=== PATIENT | male | born 1955 | race Caucasian/White ===

== ENCOUNTER 2017-04-25 09:35 | Observation (INO) | payer OTHER ==
[~2017-04-25] VITALS: Ht 177.8 cm; Wt 80.2 kg
--- NOTE | ~2017-04-25 | CT2 ---
[facility] A Service of [facility] RADIOLOGY TEXT RESULTS PATIENT: HANY GREENE LOCATION: A 301- : 56 UNIT #: [id number] AGE: [address]: TATIANNA RENEEUJ V SEX: M ORDER DR: [id number] [facility] [address] [facility] [place], [place] [address] [id number] I MR#: [id number] Acc #: [id number] NAME: HANY GREENE : 1955 SEX: M STUDY DATE/TIME: 04/25/2017 11:52 UNIT: C3A U ROOM: 301 STUDY DESCRIPTION: CT Abd and Pelv W Cont Attending Physician: Kelsi Tarango M.D. Ordering Physician: Bhavya Shearer M.D. Primary Care Physician: Primary Care Physician No MEDICAL IMAGING REPORT This report is preliminary unless electronic signature is present EXAM CT of the abdomen and pelvis with contrast INDICATIONS Left lower quadrant abdominal pain, nausea and vomiting since this morning. TECHNIQUE Axial CT images were obtained from the dome of the diaphragm through the symphysis pubis following administration of intravenous contrast material. This CT exam was performed with one or more of the following radiation dose reduction techniques: Automatic exposure control, adjustment of mA and/or kV according to patient size, and iterative reconstruction. FINDINGS Patient is noted to have bibasilar atelectasis. There is a small hiatal hernia. There is also a duodenal diverticulum. Cholelithiasis is present. There is an indeterminate low-attenuation lesion seen within the right hepatic lobe with an additional tiny low-attenuation lesion seen within the medial hepatic segment adjacent to the falciform ligament. The larger lesion measures about 1.6 cm. Pancreas is mildly atrophic. Adrenal glands are within normal limits. Patient has a right parapelvic cyst. There is mild left-sided hydroureteronephrosis, which is secondary to a punctate stone seen within the distal left ureter. This stone measures about 3 mm in size. There is extensive periureteral and perinephric soft tissue stranding. Correlation with urinalysis and urine cultures is recommended. Low-attenuation lesion is seen within the spleen, which is nonspecific but could reflect a benign lesion such as a cyst or hemangioma. There is no evidence of mechanical bowel obstruction. Patient does appear to have a lipoma involving the proximal jejunum. This lipoma measures up to about 3.1 cm in length. There is a small, fat-containing umbilical hernia. This patient has colonic diverticulosis without any evidence of diverticulitis. Urinary bladder itself appears STS. [facility] A Service of [facility] RADIOLOGY TEXT RESULTS PATIENT: HANY GREENE LOCATION: C3A 301-01 : [birth year] UNIT #: [id number] AGE: [address]: NELY RENEE V SEX: M ORDER DR: within normal limits. Prostate gland contains a few dystrophic calcifications. The appendix is visualized and is within normal limits. Review of bony windows does not demonstrate any aggressive osseous abnormalities. There is probably a vertebral body hemangioma at L4. IMPRESSION 1. This patient has mild left-sided hydroureteronephrosis, which is secondary to a 3- stone located within the distal left ureter. There is extensive perinephric and periureteral soft tissue stranding. Correlation with urinalysis and urine cultures is recommended. 2. There is a low-attenuation lesion identified within the right hepatic lobe which is indeterminate. I suspect it reflects a benign lesion, such as a hemangioma, but would recommend further evaluation with liver protocol CT or MRI on a non-emergent outpatient basis. An additional tiny, low-attenuation lesion seen within the left hepatic lobe is too small to accurately characterize. 3. Gallstones. 4. Small hiatal hernia. 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 6. Please see the body of the report for any other additional incidental findings. Dictated by... Viv Vo M.D. THIS IS AN ELECTRONICALLY VERIFIED REPORT Viv Vo M.D. at 04/26/2017 5:37 PM AFF/psc TD: 04/25/2017 22:16 JOB #: [id number] MEDICAL IMAGING REPORT Page 1 of 1 COPY
--- NOTE | ~2017-04-25 | DS ---
Unit #: [id number] #: [id number] Patient: HANY GREENE [id number] [address] [address] [id number] I MR#: [id number] NAME: HANY GREENE ROOM: 301 Age: 61 Sex: M Admission Date: 04/25/2017 : 1955 Discharge Date: Attending Physician: Bob Fitch M.D. Primary Care Physician: No Primary Care Physician DISCHARGE SUMMARY OBSERVATION DISCHARGE SUMMARY CHIEF COMPLAINT Left flank pain, nausea and vomiting. HISTORY This 61-year-old man, who has no prior history of kidney stones, developed acute severe pain in the left lower quadrant without radiation yesterday morning associated with nausea and vomiting. This prompted him to seek evaluation at the [place] emergency department after which he was admitted for pain control. CT scan showed a 3 mm stone in the distal left ureter. The CT scan was done with contrast but clearly shows no other stones. There is left hydroureteronephrosis. The patient's pain resolved yesterday afternoon with medical expulsive therapy. He has not seen the stone and thinks he has not yet passed it but the pain is absent this morning and he feels comfortable with discharge. He has no prior history of gross hematuria, urinary infections or voiding complaints and, again, has no history of stone disease. PAST MEDICAL HISTORY No chronic illnesses. SURGERIES None. MEDICATIONS None on admission. ALLERGIES Penicillin. FAMILY HISTORY Negative for prostate cancer. SOCIAL HISTORY Smokes cigarillos, does not inhaler. Never smoked cigarettes. REVIEW OF SYSTEMS No constipation. Other than HPI, ten point review of systems entirely negative. PHYSICAL EXAMINATION GENERAL: The patient is alert and comfortable, normal affect and mood. Unit #: [id number] #: [id number] Patient: HANY GREENE VITAL SIGNS: Afebrile with stable vital signs. Current temperature 97.8 degrees, pulse 77, blood pressure 117/72, respirations 16. Height is 5 feet 10 inches, weight 176 pounds. HEENT: Unremarkable. LUNGS: Clear. CARDIAC: Rate and rhythm regular. ABDOMEN: Soft, nontender. No masses, hernias, scars or CVA tenderness. GENITALIA: Phallus normal, circumcised. Normal meatus. Testes and epididymides normal, descended. SKIN: Good color. EXTREMITIES: No edema. NEURO: Intact. DIAGNOSTIC STUDIES LABORATORY: Urinalysis shows 2+ blood, 2-5 red cells, no nitrates, no leukocyte esterase, 0-2 WBCs, no bacteria. Hemoglobin 14.6, WBC 11.1, BUN 22, creatinine 1.4, glucose 144, IMAGING: CT scan as above, 3 mm solitary distal left renal calculus with hydronephrosis. IMPRESSION Patient is asymptomatic and has likely passed his first solitary small kidney stone. I discussed with him prevention and general terms of hydration, salt avoidance and balanced diet. PLAN Will discharge home and supply additional week of tamsulosin and 15 Percocet in the event of further colic. Will schedule a one month followup in the office with KUB to be sure of resolution of his stone. Dictated by... Robinson Tony M.D. DONAL/barbara TD: 04/26/2017 10:30 JOB #: [id number] DISCHARGE SUMMARY Page 1 of 1 X Robinson Tony MD X DISCHARGE SUMMARY
--- NOTE | ~2017-04-25 | EKG ---
PATIENT: HANY GREENE UNIT #: [id number] Ventricular Rate: 59 BPM Atrial Rate: 59 BPM P-R Interval: 184 ms QRS Duration: 82 ms Q-T Interval: 424 ms QTC Calculation(Bezet): 419 ms P Hatfield: 54 degrees Calculated R Hatfield: 4 degrees Calculated T Hatfield: 9 degrees Diagnosis Line: Sinus bradycardia Diagnosis Line: Otherwise normal ECG Diagnosis Line: Diagnosis Line: Confirmed by BIENVENIDO THAO MD ([id number]) on Diagnosis Line: 04/26/2017 8:23:29 PM INTERPRETING MD: ERICKA
--- NOTE | ~2017-04-25 | HP ---
Unit #: [id number] #: [id number] Patient: HANY GREENE [id number] [address] [address] [id number] I MR#: [id number] NAME: HANY GREENE ROOM: 301 Age: Sex: M Admission Date: 04/25/2017 : 1955 Attending Physician: Bob Fitch HISTORY AND PHYSICAL ADDENDUM ASSESSMENT (CONTINUED) Liver lesion. CT of the abdomen and pelvis also showed an indeterminant lesion in the right lobe of the liver. Additional imaging will be needed as an outpatient to further characterize this lesion. Dictated by Diane Black/bettie TD: 04/25/2017 14:04 JOB #: [id number] HISTORY AND PHYSICAL Page 1 of 1 X Kelsi Tarango MD X HISTORY AND PHYSICAL
--- NOTE | ~2017-04-25 | CR72 ---
[facility] A Service of [facility] & [facility] RADIOLOGY TEXT RESULTS PATIENT: HANY GREENE LOCATION: [facility] 301-01 : [birth year] UNIT #: [id number] AGE: [address]: TATIANNA RENEEUJ V SEX: M ORDER DR: [id number] [facility] [address] [facility] [place], [place] [address] [id number] I MR#: [id number] Acc #: [id number] NAME: HANY GREENE : 1955 SEX: M STUDY DATE/TIME: 04/25/2017 11:04 [facility]: [address] STUDY DESCRIPTION: CR Chest Single View Portable Attending Physician: Kelsi Tarango M.D. Ordering Physician: Bhavya Shearer M.D. Primary Care Physician: Primary Care Physician No MEDICAL IMAGING REPORT This report is preliminary unless electronic signature is present EXAM Portable chest radiograph INDICATIONS Shortness of breath, nausea and vomiting starting today. FINDINGS Heart size is within normal limits for portable technique. I do not see any definite acute infiltrates. There is some coarsening of the interstitium, but again no acute infiltrates are seen. There is elevation of the right hemidiaphragm with some associated bronchovascular crowding. There is no pneumothorax or pleural effusion. Dictated by... Viv Vo M.D. THIS IS AN ELECTRONICALLY VERIFIED REPORT Viv oV M.D. at 04/26/2017 5:38 PM AFF/psc TD: 04/25/2017 20:19 JOB #: [id number] MEDICAL IMAGING REPORT Page 1 of 1 COPY
--- NOTE | ~2017-04-25 | HP ---
Unit #: [id number] #: [id number] Patient: HANY GREENE [id number] [address] [address] [id number] MR#: [id number] NAME: HANY GREENE ROOM: Age: 61 Sex: M Admission Date: 04/25/2017 : 1955 Attending Physician: Bhavya Shearer M.D. Primary Care Physician: No Primary Care Physician HISTORY AND PHYSICAL CHIEF COMPLAINT Abdominal pain. HISTORY OF PRESENT ILLNESS The patient is a 61-year-old male with no significant past medial history who presented to the emergency department for evaluation of the above. The patient states that he was in his usual state of health until the morning of admission when he developed abdominal pain. He states that the abdominal pain is in his left lower abdomen. He describes it as "sharp." It has been fairly constant in nature. There are no exacerbating or alleviating factors. He denies any similar pain. He reports six bouts of nonbloody emesis within the past 24 hours. He denies any diarrhea. No urinary symptoms. In the emergency department initial pulse and blood pressure were 64 and 204/109. CT of the abdomen and pelvis shows a 3 mm stone within the distal left ureter. CT also shows significant stranding. He was given a total of 8 mg of morphine in the emergency department, as well as 4 mg of Zofran, 1 g of Rocephin, 5 mg of metoprolol, 10 mg of hydralazine, 1 liter of normal saline. He is being admitted to [facility] for evaluation and further treatment. PAST MEDICAL HISTORY The patient denies hospitalizations. PAST SURGICAL HISTORY. None. SOCIAL HISTORY The patient lives alone. He is unemployed. He denies tobacco use. He reports occasional alcohol use. FAMILY HISTORY Notable for his mother having a stroke. His dad of a myocardial infarction at the age of 63. ALLERGIES Penicillin causes a rash. HOME MEDICATIONS None. REVIEW OF SYSTEMS Unit #: [id number] #: [id number] Patient: HANY GREENE A complete review of systems is negative except as indicated in the HPI. The patient denies any headache, no vision changes. No chest pain. No change in his weight. PHYSICAL EXAMINATION VITAL SIGNS: Temperature is 98.1, pulse 64, respirations 16, blood pressure 204/109. Oxygen saturation 99% on room air. GENERAL: The patient is a male who is awake and alert in no acute distress. HEENT: The head is atraumatic. Mucous membranes are moist. NECK: Supple. Trachea is midline. CARDIOVASCULAR: Regular rate and rhythm. LUNGS: Clear to auscultation bilaterally with no increased work of breathing. ABDOMEN: Soft. He is tender to palpation in the left lower quadrant. Bowel sounds are present in all four quadrants. EXTREMITIES: Nontender with no pedal edema. NEUROLOGIC: The patient is awake and alert. He follows commands. PSYCH: Mood and affect are normal. The patient is cooperative. SKIN: Skin of examined areas is warm and dry. DIAGNOSTIC STUDIES CARDIOLOGY STUDIES: EKG shows sinus bradycardia at a rate of 59 BPM. IMAGING STUDIES: Chest x-ray shows no acute abnormalities. CT of the abdomen and pelvis shows mild left hydroureteronephrosis secondary to 3 mm done in distal ureter with significant associated stranding. LABORATORY STUDIES: Complete blood count is essentially normal. INR is less than 0.05. Urinalysis notable for 1+ protein, 250 glucose, trace ketones, 2+ blood, 2-5 red blood cells, 0-2 white blood cells, no squamous cells, no bacteria. INR is 1. Lactic acid is 1.7. Comprehensive metabolic panel notable for glucose of 152, BUN and creatinine 25 and 1.3 respectively. Lipase of 20, urine tox screen is negative. ASSESSMENT The patient is a 61-year-old male with: 1. Ureterolithiasis. 2. Mild hydroureteronephrosis with associated stranding. 3. Urinalysis is not showing any definitive signs of infection. He did receive a gram of Rocephin in the emergency department. 4. Uncontrolled hypertension with an initial blood pressure of 204/109. The patient received 5 mg of metoprolol and 10 mg of hydralazine in the emergency department. Most recent blood pressure is 173/104. 5. Acute kidney injury versus chronic kidney disease. The patient's creatinine is 1.3 with no baseline for comparison. PLAN 1. Admit for observation to an intermediate level. 2. Advanced diet to healthy heart if passes bedside swallow. 3. Normal saline at 125 mL an hour. 4. P.r.n. morphine. 5. P.r.n. Zofran. 6. Blood cultures x2. 7. Urine culture and sensitivity, (1) in the lab. 8. Rocephin 1 g IV daily pending results of urine culture. Unit #: [id number] #: [id number] Patient: HANY GREENE 9. Strain urine for stone and send stone for analysis. 10. Consult Dr. Aceves regarding ureterolithiasis. 11. 2D echo for further evaluation of uncontrolled hypertension. 12. Serial cardiac enzymes. 13. Norvasc 5 mg p.o. daily, first dose now. 14. P.r.n. hydralazine. 15. P.r.n. Tylenol. 16. Repeat labs in the morning. 17. SCDs for DVT prophylaxis. 18. Additional workup and consultants based on above. 19. Regarding code status, the patient is a full code. Dictated by Diane Black/beto TD: 04/25/2017 14:45 JOB #: [id number] HISTORY AND PHYSICAL Page 1 of 1 X Kelsi Tarango MD X HISTORY AND PHYSICAL
--- NOTE | ~2017-04-25 | DS ---
Unit #: [id number] #: [id number] Patient: HANY GREENE [id number] [address] [address] [id number] I MR#: [id number] NAME: HANY GREENE ROOM: 301 Age: 61 Sex: M Admission Date: 04/25/2017 : 1955 Discharge Date: 04/26/2017 Attending Physician: Bob Fitch M.D. Primary Care Physician: Cassi Primary Care Physician DISCHARGE SUMMARY PERTINENT HISTORY AND HOSPITAL COURSE The patient is a 61-year-old man with no prior history of kidney stones, who suddenly developed acute severe pain in the left lower quadrant of his abdomen. He underwent a CAT scan that demonstrated 3 mm stone in the distal left ureter. Urology was consulted and suggested continuation of Flomax. Along with medications for pain relief, Percocet. With a followup in one month. Also during his admission, he was noted to have hypertension. He was started on Norvasc. DISCHARGE DIAGNOSES 1. Left renal calculi. 2. Hypertension. [facility]ULT[facility] Urology. DISCHARGE INSTRUCTIONS Followup with urology in about one month. DISCHARGE MEDICATIONS 1. Flomax 0.4 mg p.o. daily. 2. Norvasc 5 mg p.o. at bedtime. 3. Percocet 5/325 mg 1 tablet p.o. q.6 p.r.n. for pain. Dictated by... Diane Nguyen/beto TD: 04/29/2017 11:45 JOB #: [id number] DISCHARGE SUMMARY Page 1 of 1 X X DISCHARGE SUMMARY
[~2017-04-25 09:35] MED LIST: LORTAB 7.51 TAB; NO MEDICATIONS
[2017-04-25 10:36] LABS: URINE SOURCE CLEAN CATCH
[2017-04-25 10:46] LABS: BASOPHIL% 0.6 % (0-2.5); EOSINOPHIL% 0.3 % (0.0-7.0); HEMATOCRIT 47.9 % (38.0-50.0); HEMOGLOBIN 15.9 gm/dL (13.0-16.0); LYMPHOCYTE# 0.6 X10e3 (1.0-3.5); LYMPHOCYTE% 7.9 % (17.0-45.0); MEAN CELL VOLUME 89.3 FL (83-96); MEAN CORPUSCULAR HEMOGLOBIN 29.7 PG (28-34); MEAN CORPUSCULAR HGB CONC 33.3 g/dL (30-36); MEAN PLATELET VOLUME 8.5 FL (6.5-11.5); MONOCYTE# 0.2 X10e3 (0-1.0); NEUTROPHIL# 6.2 X10e3 (1.5-7.1); NEUTROPHIL% 88.2 % (40-75); PLATELET COUNT 186 X10e3 (140-420); RED BLOOD COUNT 5.36 X10e (3.90-5.60); RED CELL DISTRIBUTION WIDTH 12.9 % (11.0-15.5); WHITE BLOOD COUNT 7.1 X10e3 (4.0-10.5)
[2017-04-25 10:47] LABS: URINE APPEARANCE CLOUDY; URINE BILIRUBIN NEG (NEG); URINE BLOOD 2+ (NEG); URINE COLOR DK YELLOW; URINE GLUCOSE 250 MG/DL (NEG); URINE KETONE TRACE (NEG); URINE LEUKOCYTE ESTERASE NEG (NEG); URINE NITRATE NEG (NEG); URINE PROTEIN 1+ (NEG); URINE SPECIFIC GRAVITY 1.031 (1.003-1.035)
[2017-04-25 10:48] LABS: DIFF IND NO
[2017-04-25 10:49] LABS: URINE BACTERIA AUWI NEG (NEGATIVE); URINE SQUAMOUS EPITHELIAL CELL NONE SEEN /[HPF]; UWBCS1 AUWI 0-2 (0-5)
[2017-04-25 10:49] LABS: POC - CKMB 1.4 ng/mL (0.0-7.9); POC - TROPONIN <0.05 ng/mL (<=0.05)
[2017-04-25 10:58] LABS: CULTURE INDICATED? NO
[2017-04-25 11:01] LABS: PARTIAL THROMBOPLASTIN TIME 23.1 SECONDS (23.5-31.3); PROTHROMBIN TIME (PATIENT) 10.7 SECONDS (10.0-11.7)
[2017-04-25 11:09] LABS: ALBUMIN SERUM 4.6 g/dL (3.5-5.0); AMPHETAMINE NEG (NEG); BARBITURATES NEG (NEG); BENZODIAZEPINES NEG (NEG); BILIRUBIN, DIRECT 0.1 mg/dL (0.0-0.2); BILIRUBIN,TOTAL 1.1 mg/dL (0.2-2.0); BUN/CREATININE RATIO 19.23; CALCIUM SERUM 9.5 mg/dL (8.4-10.2); COCAINE NEG (NEG); CREATININE SERUM 1.3 mg/dL (0.6-1.4); GLOM FILT RATE Estimated 59.3 mL/min (>60); MARIJUANA NEG (NEG); OPIATES NEG (NEG); PROTEIN TOTAL SERUM 7.8 g/dL (6.0-8.3); TRICYCLIC ANTIDEPRESSANTS NEG (NEG); U METHADONE NEG (NEG)
[2017-04-25 19:43] LABS: %MB 3.6 % (0.0-4.0); MB 3.8 ng/ml
[2017-04-25 23:46] LABS: MB 4.4 ng/ml
[2017-04-26 04:23] LABS: BILIRUBIN,TOTAL 0.9 mg/dL (0.2-2.0); BUN/CREATININE RATIO 15.71; CALCIUM SERUM 8.9 mg/dL (8.4-10.2); CREATININE SERUM 1.4 mg/dL (0.6-1.4); GLOM FILT RATE Estimated 54.2 mL/min (>60); PROTEIN TOTAL SERUM 7.1 g/dL (6.0-8.3)
[2017-04-26 06:00] LABS: HEMATOCRIT 44.3 % (38.0-50.0); HEMOGLOBIN 14.6 gm/dL (13.0-16.0); MEAN CORPUSCULAR HGB CONC 32.9 g/dL (30-36); RED BLOOD COUNT 4.87 X10e (3.90-5.60); RED CELL DISTRIBUTION WIDTH 12.8 % (11.0-15.5)
[2017-04-26 06:03] LABS: WHITE BLOOD COUNT 11.1 X10e3 (4.0-10.5)
[2017-04-26] MEDS ORDERED: FLOMAX0.4 M1 PO (10:59)
[2017-04-26] MEDS ORDERED: ACETAMINOPHEN650 M4 PO (11:00)
[2017-04-26] MEDS ORDERED: NORVASC PO (11:00)
[2017-04-26] MEDS ORDERED: PERCOCET5/325 PO (11:01)
== END 2017-04-26 15:42 | disposition home or self-care (01) ==
LOC: CED 09:35 → CEDOF 13:50 → CED 15:21 → C3A PCU 21:40
PROVIDERS: Emergency Medicine; Family Medicine
DX: N13.2 Hydronephrosis with renal and ureteral calculous obstruction (principal); K76.9 Liver disease, unspecified; K80.80 Other cholelithiasis without obstruction; K44.9 Diaphragmatic hernia without obstruction or gangrene; D17.5 Benign lipomatous neoplasm of intra-abdominal organs
CPT/HCPCS: 36415; 71010; 74177; 80048; 80053; 80076; 80307; 81003; 82550; 82553; 83605; 83690; 84484; 85025; 85027; 85610; 85730; 87040; 87086; 93005; 96361; 96374; 96375; 96376; 99285; G0378; J0360; J0696; J2270; J2405; J3490; Q9967